=== PATIENT | female | born 1980 | race African-American/Black ===

== ENCOUNTER 2016-06-30 18:43 | Emergency (ER) | payer MEDICAID ==
[2015-08-03 13:13] VITALS: BMI 38.3
== END 2016-06-30 20:25 | disposition home or self-care (01) ==
LOC: D.ER 18:43
DX: M77.51 Other enthesopathy of right foot and ankle (principal)

== ENCOUNTER 2016-07-02 18:55 | Inpatient (IN) | payer MEDICAID ==
[~2016-07-02] VITALS: Ht 167.6 cm; Wt 111.9 kg
--- NOTE | ~2016-07-02 | HEMODYNAMI ---
PATIENT:SHRUTHI GALLEGOS MEDICAL RECORD: [id number] : 76 LOCATION:[facility] D.[address] [facility]# [id number] ADMISSION DATE: 07/02/16 Generatedon:07/03/201616:23 Patient name: SHRUTHI GALLEGOS Patient #: [id number] SSN: : 1980 Date of study: 07/03/2016 Page: Of Hemodynamic Procedure Report Patient Data Patient Demographics Procedure consent was obtained First Name: SHRUTHI Gender: Female Last Name: EL : 1980 [facility] Initial: N Age: 36 year(s) Patient #: [id number] Race: Black Additional ID: [id number] Contact details Address: [place] [address] State: [place] City: [place] Zip code: [address] Past Medical History Allergies: No known allergies Admission Admission Data Admission Date: 07/02/2016 Admission Time: 21:16 Admit Source: Other Insurance Payor: Private Room #: D.2125 health insurance Medications upon Admission Medications Dosage Times Administered Last Remarks per Delivery Day Date and Time Clopidogrel Yes 07/03/2016 0:00 Lab Results Lab Result Date: 07/03/2016 Lab Result Time: 0:00 Biochemistry Name Units Result Min Max Creatinine mg/dl 0.9 --(-*--)-- 0.6 1.3 CBC Name Units Result Min Max Hemoglobin g/dl 11.2 *-(----)-- 13.5 17.5 Procedure Procedure Types Cath Procedure Diagnostic Procedure LHC LHC w/Coronaries Miscellaneous Procedures Moderate Sedation up to 15 minutes Procedure Description Procedure Date Procedure Date: 07/03/2016 Procedure Start Time: 16:10 Procedure End Time: 16:21 Procedure Staff Name Function Hesham Ferguson MD Performing Physician Reji Spence RT Scrub Katy Kelley RN Nurse Jasson Simons RT Monitor Procedure Data Cath Procedure Fluoroscopy Diagnostic fluoroscopy Total fluoroscopy Time: 1.9 time: 1.9 min min Contrast Material Contrast Material Type Amount (ml) Isovue 300 59 Entry Location Entry Primary Successful Side Size Upsize Upsize Entry Closure Valderrama ccessful Closure Location (Fr) 1 (Fr) 2 (Fr) Remarks Device Remarks Radial Right 6 Fr Mechanical artery Short Compression Estimated blood loss: 5 ml Diagnostic catheters Device Type Used For End Catheter Placement Terumo 5Fr [place] 110cm Procedure catheter Cordis Infinity 5Fr Procedure Pigtail catheter Procedure Complications No complications Procedure Medications Medication Administration Route Dosage Oxygen NC 2 l/min Heparin Flush Bag added to field 2 bags (1000units/500ml NS) Lidocaine 2% added to field 20 Radial Cocktail added to field 1 syringe (Verapomil 2mg/Nitro 400mcg/Heparin 1500units) Radial Cocktail I.A. 1 syringe (Verapomil 2mg/Nitro 400mcg/Heparin 1500units) Versed I.V. 1 mg Fentanyl 50 mcg Versed I.V. 1 mg Fentanyl 50 mcg Hemodynamics Rest HGB: 11.2 (g/dl) Heart Rate: 72 (bpm) Snapshots Pre Cath Intra NCS Post Cath Vital Signs Time Heart Resp SPO2 NIBP (mmHg) Rhythm Pain Sedation Rate (ipm) (%) Status Level (bpm) 16:02:04 63 20 98 131/91(106) NSR 0 (11) 10(A) , No pain 16:06:16 68 22 100 135/89(109) NSR 0 (11) 10(A) , No pain 16:10:30 82 15 100 118/82(94) NSR 0 (11) 10(A) , No pain 16:15:15 75 15 100 111/72(90) NSR 0 (11) 9(A) , No pain 16:20:12 74 17 100 108/74(101) NSR 0 (11) 9(A) , No pain Medications Time Medication Route Dose Verified Delivered Reason Notes Effectiveness by by 15:58:09 Oxygen NC 2 l/min Hesham Burns Per Phyllis Kelley RN physician 15:58:16 Heparin Flush added 2 bags Hesham Dahl used for Bag to Phyllis Ferguson MD procedure (1000units/500ml field NS) 15:58:22 Lidocaine 2% added 20ml Hesham Dahl used for to vial Phyllis Ferguson MD procedure field 15:58:28 Radial Cocktail added 1 Hesham Dahl used for (Verapomil to syringe Phyllis Ferguson MD procedure 2mg/Nitro field 400mcg/Heparin 1500units) 16:10:28 Versed I.V. 1 mg Hesham Katy for sedation Phyllis Kelley RN 16:10:46 Fentanyl 50 mcg Hesham Katy for sedation Phyllis Kelley RN 16:10:55 Radial Cocktail I.A. 1 Hesham Dahl for (Verapomil syringe Phyllis Ferguson MD vasodilation 2mg/Nitro 400mcg/Heparin 1500units) 16:13:18 Versed I.V. 1 mg Hesham Katy for sedation Phyllis Kelley RN 16:13:28 Fentanyl 50 mcg Hesham Katy for sedation Phyllis Kelley RN Procedure Log Time Note 15:33:33 ACC Patient presents with Unstable Angina CCS Anginal Class 3--Marked limitation of physical activity, angina occurs with ordinary activity.. 15:33:35 Diagnostic Cath status Urgent 15:33:39 Reji Spence RT(R) sent for patient. Start room use. 15:33:40 Time tracking: Regular hours 15:33:45 Plan of Care:Hemodynamics will remain stable., Cardiac rhythm will remain stable., Comfort level will be maintained., Respiratory function will remain adequate., Patient/ family verbilizes understanding of procedure., Procedure tolerated without complication., Recovers from procedure without complications.. 15:58:09 Oxygen 2 l/min NC was given by Katy Kelley RN; Per physician; 15:58:16 Heparin Flush Bag (1000units/500ml NS) 2 bags added to field was given by Hesham Ferguson MD; used for procedure; 15:58:22 Lidocaine 2% 20ml vial added to field was given by Hesham Ferguson MD; used for procedure; 15:58:28 Radial Cocktail (Verapomil 2mg/Nitro 400mcg/Heparin 1500units) 1 syringe added to field was given by Hesham Ferguson MD; used for procedure; 16:00:55 Vital chart was started 16:07:37 Patient received from Med II to CCL 2 Alert and oriented. Tansferred to table in Supine position. 16:07:38 Warm blankets applied, and bulmaro hugger turned on for patient comfort. 16:07:38 Correct patient and procedure confirmed by team. 16:07:40 Signed procedure consent form obtained from patient. 16:07:41 ECG and BP/O2 sat monitors applied to patient. 16:08:01 Baseline sample Acquired. 16:08:06 Rhythm: sinus rhythm 16:08:46 H&P Date Dictated: 07/02/2016 Within 30 days and on chart.. 16:08:47 Pre-procedure instructions explained to patient. 16:08:47 Pre-op teaching completed and patient verbalized understanding. 16:08:55 Family unavailable. 16:08:56 Patient NPO since Midnight. 16:09:03 Patient allergic to No known allergies 16:09:08 Is the patient allergic to Iodine/contrast media? No. 16:09:10 Is patient on blood thinner?Yes 16:09:12 ACC The patient was administered the following blood thiners within the last 24 hours: ACCPlavix 16:09:16 Patient diabetic? No. 16:09:21 Patient not . Patient has had hysterectomy. 16:09:23 Previous problem with sedation/anesthesia? No ? 16:09:24 Snore? Yes 16:09:26 Sleep apnea? No 16:09:26 Deviated septum? No 16:09:27 Opens mouth fully? Yes 16:09:28 Sticks out tongue? Yes 16:09:30 Airway obstruction? No ? 16:09:31 Dentures? No ? 16:09:34 Modified Austin's test Ulnar < 7 seconds 16:09:37 Patient pain scale 0/10 ?. 16:09:45 IV patent on arrival in left antecubital with 0.9% NaCl at O. 16:10:07 Lab Result : Hemoglobin 11.2 g/dl 16:10:07 Lab Result : Creatinine 0.9 mg/dl 16:10:11 Lab results completed and on chart. 16:10:14 Right Radial & Right Groin area was prepped with chlora-prep and draped in sterile fashion 16:10:15 Alarms reviewed by R. N. 16:10:15 Sharps counted by scrub and verified by R.N. 16:10:17 --------ALL STOP TIME OUT------ 16:10:17 Final Timeout: patient, procedure, and site verified with staff and physician. All members of the team are in agreement. 16:10:19 Right Radial & Right Groin site verified by team. 16:10:22 Physical assessment completed. ASA score P 2 - A patient with mild systemic disease as per Hesham Ferguson MD. 16:10:25 Sedation plan: IV Moderate Sedation Versed, Fentanyl 16:10:28 Versed 1 mg I.V. was given by Katy Kelley RN; for sedation; 16:10:33 Use device set Radial Dx 16:10:34 Tegaderm 4 x 4 opened to sterile field. 16:10:35 Acist Manifold opened to sterile field. 16:10:35 Acist Hand Control opened to sterile field. 16:10:36 Acist Syringe opened to sterile field. 16:10:37 Cardinal Cath Pack opened to sterile field. 16:10:37 Bag Decanter opened to sterile field. 16:10:38 Terumo 6Fr Slender Glidesheath opened to sterile field. 16:10:38 St Pramod 260cm J .035 wire opened to sterile field. 16:10:42 Procedure started. 16:10:42 Full Disclosure recording started 16:10:46 Fentanyl 50 mcg was given by Katy Kelley RN; for sedation; 16:10:46 Local anesthetic to right radial artery with Lidocaine 2% by Hesham Ferguson MD.INITIAL ACCESS ONLY 16:10:53 A 6 Fr Short sheath was inserted into the Right Radial artery 16:10:55 Radial Cocktail (Verapomil 2mg/Nitro 400mcg/Heparin 1500units) 1 syringe I.A. was given by Hesham Ferguson MD; for vasodilation; 16:12:07 Zero performed for pressure channel P1 16:12:14 Zero performed for pressure channel P1 16:12:32 A Terumo 5Fr [place] 110cm catheter was advanced over the wire and used for Procedure. 16:13:18 Versed 1 mg I.V. was given by Katy Kelley RN; for sedation; 16:13:28 Fentanyl 50 mcg was given by Katy Kelley RN; for sedation; 16:13:34 LV gram done using VALLE 16:13:37 Injector settings: Ml/sec: 5, Volume: 15, 16:14:46 LCA angiography performed. 16:15:46 RCA angiography performed. 16:15:52 Catheter exchanged over wire. 16:17:20 A Cordis Infinity 5Fr Pigtail catheter was advanced over the wire and used for Procedure. 16:17:54 EF : 55 % 16:18:11 Catheter removed. 16:18:29 Terumo TR Band Standard opened to sterile field. 16:18:51 Sheath removed intact; hemostasis achieved with Mechanical Compression to the Right Radial artery. 16:18:53 Procedure ended.(Physican Out) 16:19:19 Fluoroscopy time 01.90 minutes. 16:19:35 Contrast amount:Isovue 300 59ml. 16:19:37 Sharps counted by scrub and verified by R.N. 16:19:55 TR band inflated with 10cc of air. 16:19:57 Insertion/operative site no bleeding no hematoma. 16:20:01 Post Procedure Pulses reassessed and unchanged 16:20:08 Post-procedure physical assessment completed. ASA score P 2 - A patient with mild systemic disease as per Hesham Ferguson MD. 16:20:11 Post procedure rhythm: unchanged. 16:20:13 Estimated blood loss: 5 ml 16:20:14 Post procedure instruction explained to patient.Patient verbalizes understanding. 16:20:15 Patient needs reinforcement of post procedure teaching. 16:20:32 Procedure type changed to Cath procedure, Diagnostic procedure, LHC, LHC w/Coronaries, Miscellaneous Procedures, Moderate Sedation up to 15 minutes 16:20:52 Procedure and supply charges have been captured, reviewed, submitted and are correct. 16:20:55 Procedure Complication : No complications 16:21:05 Vital chart was stopped 16:21:05 See physician's report for complete and final results. 16:21:14 Report given to PCU. 16:21:16 Patient transfered to PCU with Stretcher. 16:21:18 Procedure ended. 16:21:18 Full Disclosure recording stopped 16:21:22 End room use (Document Last) 16:22:10 Admit Source: Other 16:22:23 Insurance Payor : Private health insurance 16:23:30 LV Function : Normal 16:23:34 EF : 55 % Device Usage Item Name Manufacture Quantity Catalog Hospital Part Current Minimal Lot# / Number Charge Number Stock Stock Serial# Code Tegaderm 4 1 [id number] [id number] 014391 5 x 4 Acist Acist 1 58332 [id number] 439295 892759 5 Manifold [employer] Inc Acist Hand Acist 1 63136 139136 274276 882466 5 Control Medical Systems Inc Acist Acist 1 82653 971072 550902 619365 20 Syringe Medical Systems Inc Cardinal Cardinal 1 [id number] 42116 705158 5 Cath Pack Health Bag Microtek 1 2002S 651644 71495 860720 5 [email or web address] Terumo 6Fr Terumo 1 [id number] 399165 136608 041505 [address] Pramod 1 157839 532164 031623 810276 30 260cm J .035 wire Terumo 5Fr Terumo 1 40-3502 434732 191758 182878 5 [place] 110cm catheter Cordis Cardinal 1 [id number] 957357 626986 766340 5 [employer] 5Fr Pigtail catheter Terumo TR Terumo 1 [id number] 017556 292896 096537 40 Band Standard Signature Audit [place] Stage Time Signature Unsigned Intra-Procedure 07/03/2016 Jasson Simons 4:23:50 PM RT(R) Signatures Monitor : Jasson Simons RT Signature : Date : Time : [place] [id number]
[2016-07-02 19:52] LABS: ALBUMIN 3.3 g/dL (3.4-5.0); ALKALINE PHOSPHATASE 87 U/L (46-116); ALT (SGPT) 30 U/L (10-68); BASOPHILS 0.9 % (0.0-2.0); BILIRUBIN - TOTAL 0.51 mg/dL (0.2-1.3); CALC OSMOLALITY 280 mosm/kg (275-300); CALCIUM 8.4 mg/dL (8.5-10.1); CARBON DIOXIDE 27.1 mmol/L (21.0-32.0); CHLORIDE - SERUM 108 mmol/L (98-107); CREATININE - SERUM 0.9 mg/dL (0.6-1.3); EOSINOPHILS 2.7 % (0-7); GLUCOSE 85 mg/dL (74-106); HEMOGLOBIN 11.2 g/dL (12-16); IMMATURE GRANULOCYTES 0.3 % (0-5); LYMPHOCYTES 39.2 % (15-50); MCH 20.9 pg (26.0-34.0); MCV 65.2 fL (80.0-100.0); MEAN PLATELET VOLUME 10.1 fL (7.4-10.4); MONOCYTES 8.8 % (2-11); NEUTROPHILS 48.1 % (40-80); PLATELET COUNT 299 10x3/uL (130-400); POTASSIUM - SERUM 3.8 mmol/L (3.5-5.1); PROTEIN - SERUM 6.4 g/dL (6.4-8.2); RBC 5.37 10x6/uL (4.00-5.40); RDW 15.4 % (11.5-14.5); SODIUM 142 mmol/L (136-145); UREA NITROGEN 10 mg/dL (7-18); eGFR NON AFRICAN AMERICAN 74 mL/min (90-120)
[2016-07-02 20:11] LABS: CKMB 7.6 U/L (0.0-3.6); CREATINE KINASE 499 UL (21-215)
[2016-07-02 20:12] LABS: TROPONIN-I 0.531 ng/mL (0.000-0.060)
[2016-07-02 20:28] LABS: APPEARANCE CLEAR (CLEAR); BILIRUBIN NEGATIVE (NEGATIVE); COLOR YELLOW (YELLOW); GLUCOSE NEGATIVE (NEGATIVE); KETONE NEGATIVE (NEGATIVE); LEUKOCYTE ESTERASE NEGATIVE (NEGATIVE); NITRITE NEGATIVE (NEGATIVE); PROTEIN NEGATIVE (NEGATIVE); SPECIFIC GRAVITY 1.015 (1.005-1.020); UROBILINOGEN NORMAL (NORMAL)
[2016-07-02 20:29] LABS: UDS - AMPHET NEGATIVE QUAL (NEGATIVE); UDS - BARB NEGATIVE QUAL (NEGATIVE); UDS - BENZO NEGATIVE QUAL (NEGATIVE); UDS - COCAINE NEGATIVE QUAL (NEGATIVE); UDS - METH NEGATIVE QUAL (NEGATIVE); UDS - OPIATE NEGATIVE QUAL (NEGATIVE); UDS - PCP NEGATIVE QUAL (NEGATIVE); UDS - THC NEGATIVE QUAL (NEGATIVE)
--- NOTE | 2016-07-02 21:40 | NUR ---
RECIEVED TO ROOM 2124 FROM E.R. A&O, VITALS STABLE, PLACED ON TELEMETRY, 74 SR PER MT. IV TO LEFT AC SL, SITE CLEAN AND DRY. PT DENIES PAIN OR NEEDS. PTS DAD AT BED SIDE.
--- NOTE | 2016-07-02 22:46 | NUR ---
D5NS INFUSING TO LEFT AC PIV. PT DENIES NEEDS, REMINDED PT NOTHING TO EAT OR DRINK AFTER MN UNTIL SEEN BY CARIOLOGY. PT STATED UNDERSTANDING.
[2016-07-03 01:22] VITALS: BP 125/72
[2016-07-03 01:34] VITALS: BP 125/72; Ht 167.6 cm; Wt 111.9 kg
--- NOTE | 2016-07-03 03:01 | NUR ---
RESTING WITH EYES CLOSED, RESPERATIONS EVEN, NO S/S DISTRESS NOTED.
[2016-07-03 06:27] VITALS: BP 118/75
[2016-07-03 08:00] VITALS: BP 132/83
--- NOTE | 2016-07-03 08:20 | NUR ---
ASSESSMENT DONE. PT C/O SLIGHT CP. DENIES SOB. FAMILY AT BEDSIDE. WANTS TO BE TRANSFERED TO [facility]. DR. MORTON HERE AND NOTIFIED. HE IS GOING TO TALK TO PT AND FAMILY. CALL LIGHT WITH IN REACH. WILL CONT. TO MONITOR.
--- NOTE | 2016-07-03 08:20 | NUR ---
RESTS IN BED WITH CALL LIGHT IN REACH. RESP UL ON . IV PATENT. FAMILY AT BS. DR. MORTON DISCUSSING OPTIONS WITH FAMILY. WILL CONT. PLAN OF CARE.
--- NOTE | 2016-07-03 08:35 | NUR ---
THIS NURSE EXPLAINED TO PT THE RISKS OF PT WAITING FOR ANGIOGRAM D/T ELEVATED CE. NURSE EXPRESSED CONCERN TO PT THAT THIS NURSE DOES NOT FEEL LIKE SHE IS STABLE ENOUGH TO TRANSFUR TO [facility], AND WAIT FOR HEART CATH. PT VERBALIZED UNDERSTANDING AND STILL WISHES TO TRANSFER. SHE STATES HER DAD IS A PT THERE AND THAT IS WHERE SHE WISHES TO GO.
--- NOTE | 2016-07-03 11:36 | NUR ---
PT SLEEPING. RESP EVEN AND UNLABORED. APPEARS COMFORTABLE. CALL LIGHT WITH IN REACH. WILL CONT. TO MONITOR.
[2016-07-03 11:42] VITALS: BP 107/58; BP 123/79
--- NOTE | 2016-07-03 11:55 | NUR ---
DR MORTON INFORMED CM THAT THIS PATIENT WAS ADMITTED WITH ACS/NON Q WAVE PR AND IS REQUESTING TO TRANSFER TO [facility] IN [place] FOR CARDIOLOGY CARE. SHE STATED SHE DOES NOT HAVE A PRIMARY COMMUTATOR TESTER THAT FOLLOW HER AT [facility], NOR ANY REGULAR PHYSICIANS THAT SEE HER FROM [facility]. DR MORTON STATED THAT HE DISCUSSED NEED FOR HEART CATH AND THAT HEART CATH COULD BE DONE AT [facility] TODAY, BUT PT CONTINUED TO INSIST THAT SHE TRANSFER TO [facility] FOR CARDIOLOGY CARE. CM PLACED CALL TO TYLER Narvaez, EXPRESS CLERK, TO INFORM OF PT'S REQUEST FOR ACUTE TRANSFER TO [facility]. TYLER SPOKE WITH KRISTI GARCIA, DOOR FURRING INSTALLER IT BUSINESS ANALYST, TO OBTAIN ADMIN. APPROVAL FOR TRANSFER AND STATED THAT KRISTI GARCIA INFORMED THAT IF PATIENT REQUESTS TRANSFER WE WILL HONOR HER REQUEST AND ATTEMPT ACUTE TRANSFER TO [facility]. CM DAISHA COVARRUBIAS SPOKE WITH PATIENT WHO CONTINUES TO INSIST THAT SHE TRANSFER TO [facility]. Prashanth COVARRUBIAS EDUCATED PATIENT THAT A PHYSICIAN AT [facility] MUST ACCEPT HER FOR ADMISSION AND FACILITY MUST HAVE BED AVAILABLE TO TRANSFER TO. HE ALSO EDUCATED PATIENT THAT SHE COULD BE FINANCIALLY RESPONSIBLE FOR SERVICES/CARE THAT CAN BE PROVIDED AT CURRENT FACILITY ([facility]), AND TRANSPORTATION TO RECEIVING FACILITY. HE ENCOURAGED PATIENT TO CALL HER INSURANCE COMPANY TO DISCUSS ANY POTENTIAL FINACIAL RESPONSIBILITY INVOLVED IN LATERAL TRANSFER. ABBIE BRAGG RN, CM
--- NOTE | 2016-07-03 11:55 | NUR ---
Patient Name: SHRUTHI GALLEGOS Admission Status: ER Accout number: [id number] Admission Date: 07-02-2016 : 1980 Admission Diagnosis:NON-ST ELEVATION (NSTEMI) MYOCARDIAL INFARCTION Attending: DIANA Current LOS: 1 Anticipated DC Date: 07-03-2016 Planned Disposition: Other Type of Facility Primary Insurance: [employer] [facility] Discharge Planning Comments: * Is the patient Alert and Oriented? Yes 0 * How many steps to enter\exit or inside your home? 3 0 * PCP NONE 0 * Pharmacy NONE [facility] NEEDED 0 * Preadmission Environment Home with Family 0 * ADLs Independent 0 * Equipment None 0 * Other Equipment [facility] - MEDICAL EQUIPMENT PROVIDER 0 * List name and contact numbers for known caregivers / representatives who currently or will assist patient after discharge: EMMANUEL NOLEN, , 0 * Community resources currently utilized None 0 * Please name any agencies selected above. NONE 0 * Additional services required to return to the preadmission environment? No 0 * Can the patient safely return to the preadmission environment? Yes 0 * Has this patient been hospitalized within the prior 30 days at any hospital? No 0 CM MET WITH PT IN ROOM TO DISCUSS DISCHARGE PLANNING AND NEEDS. PT REPORTS LIVING AT HOME INDEPENDENTLY WITH MINOR CHILDREN AND HAS HER FATHER VISITING HER HOME AT THIS TIME. PT HAS NO MEDICAL EQUIPMENT AND WOULD PREFER [facility] A PROVIDER IF ANY IS NEEDED. PT HAS NO OUTSIDE SERVICES ASSISTING IN THE HOME. CM DISCUSSED PT'S REQUEST FOR TRANSFER TO [facility]. PT WOULD LIKE TRANSFER TO [facility] AND WOULD LIKE HER PROCEDURE DONE THERE. PT HAS NO DOCTOR OR ASPHALT RAKER AT [facility] AND HAS NOT RECEIVED CARE AT [facility] IN THE PAST. CM EXPLAINED THAT THERE HAS TO BE AN ACCEPTING PHYSICIAN THAT WILL AGREE TO THE LATERAL TRANSFER; A BED WOULD HAVE TO BE AVAILABLE AT THE FACILITY; INSURANCE MAY NOT PAY FOR AMBULANCE/CARE FOR LATERAL TRANSFER; CM EXPRESSED CONCERN REGARDING IS IT SAFE TO WAIT WHEN THE SERVICES NEEDED ARE AVAILABLE HERE. PT WOULD LIKE CM TO TRANSFER HER TO [facility] AND IF A DOCTOR WILL NOT ACCEPT HER, THEN SHE WILL DO THE PROCEDURE HERE. CM ADVISED PT TO CALL AND SPEAK TO HER INSURANCE COMPANY REGARDING WHAT THEY WILL COVER AND NOT COVER TO ENSURE PT IS NOT BURDENED FINANCIALLY AND MAKES AN INFORMED DECISION. CM PROVIDED AND DISCUSSED [facility] TO ASSIST PT WITH ESTABLISHING WITH PRIMARY CARE DOCTOR IF SHE CHOOSES TO DO SO. CM NOTIFIED RN JN PRASAD OF PT'S CONTINUED REQUEST TO TRANSFER TO [facility]. CM NOTIFIED OF ACCEPTING PHYSICIAN AND NO AVAILABLE BED AT [facility] FOR PT TRANSFER. CM NOTIFIED PT OF ABOVE; CM ADVISED PT THAT [facility] EMERGENCY ROOM PT'S TAKE PRIORITY OVER OUTSIDE HOSPITAL TRANSFERS AND CAUTIONED PT THAT THERE IS NO WAY TO KNOW WHEN A BED MAY BE AVAILABLE FOR TRANSFER AND THAT [facility] WOULD CALL CM WHEN BED IS AVAILABLE. PT THANKED JN. CM WAITING BED AVAILABILITY FOR PT'S REQUESTED TRANSFER TO [facility]. Supervisor Machining: [employer]
--- NOTE | 2016-07-03 12:02 | NUR ---
JN RECEIVED CALL FROM DR MORTON TO INFORM THAT HE HAD SPOKEN WITH DR. BARAJAS AT [facility] TO DISCUSS PATIENT'S REQUEST TO TRANSFER. HE INFORMED THAT DR. BARAJAS HAS AGREED TO ACCEPT PATIENT FOR TRANSFER, HOWEVER, HE ALSO STATED [facility] MD INFORMED HIM THAT THERE ARE CURRENTLY NO BEDS AVAILABLE AT THIS TIME. CM PLACED CALL TO [facility] TRANSFER LINE AND SPOKE TO HUNTER WHO CONCURRED THAT NO BEDS ARE CURRENTLY AVAILABLE AND THAT ANNE RN WITH [facility] TRANSFER TEAM WILL CALL MED 2 WHEN A BED BECOMES AVAILABLE. PT WAS INFORMED OF ABOVE. ABBIE BRAGG, RN, CM
--- NOTE | 2016-07-03 12:30 | NUR ---
PT ASKED FOR STATUS ON HER TRANSFER TO [facility]. NURSE EXPLAINED THAT THERE IS AN EXCEPTING PHYSICAN, BUT NOT AN AVAILABLE BED. NURSE EXPLAINED THERE IS NO WAY TO KNOW HOW LONG IT WILL TAKE BEFORE A BED IS OPEN FOR HER TO HAVE. NURSE EXPLAINED RISKS OF WAITING FOR HEART CATH. PT VERBALIZED UNDERSTANDING. STATES SHE WANTS TO TALK TO HER FAMILY BEFORE MAKING A CHOICE ON WEATHER TO DO HEART CATH HERE OR WAIT FOR TRANFER. WILL CONT. TO MONITOR.
--- NOTE | 2016-07-03 12:45 | NUR ---
PT HAS DECIDED TO STAY HERE AND ALLOW DR. MORTON TO DO HEART CATH. CASE MANAGEMENT AND DR. MORTON NOTIFIED. RECEIVED ORDER TO FEED PT LUNCH THEN KEEP NPO AFTER THAT. PT C/O CHEST PAIN AND PRESSURE. 1 NITRO TAB GIVEN. WILL MONITOR.
--- NOTE | 2016-07-03 13:02 | NUR ---
PT STATES NITRO HELPED CP, AND SOB. DENIES DIZZINESS. FAMILY AT BEDSIDE. CALL LIGHT WITH IN REACH. WILL CONT. TO MONITOR.
--- NOTE | 2016-07-03 13:56 | NUR ---
PT SITTING UP IN BED. A/O. DENIES CP OR SOB. STATES NITRO HAS RELEIVED SYMPTOMS. PT TO RESUME NPO STATUS PER DR. MORTON. PT VERBALIZED UNDERSTANDING.
[2016-07-03 15:46] LABS: CALC OSMOLALITY 278 mosm/kg (275-300); CALCIUM 7.8 mg/dL (8.5-10.1); CARBON DIOXIDE 25.8 mmol/L (21.0-32.0); CHLORIDE - SERUM 107 mmol/L (98-107); CREATININE - SERUM 0.8 mg/dL (0.6-1.3); GLUCOSE 127 mg/dL (74-106); POTASSIUM - SERUM 3.8 mmol/L (3.5-5.1); SODIUM 140 mmol/L (136-145); UREA NITROGEN 6 mg/dL (7-18); eGFR NON AFRICAN AMERICAN 85 mL/min (90-120)
[2016-07-03 15:46] LABS: BASOPHILS 0.7 % (0.0-2.0); EOSINOPHILS 2.5 % (0-7); HEMATOCRIT 34.1 % (36.0-48.0); HEMOGLOBIN 10.6 g/dL (12-16); LYMPHOCYTES 44.3 % (15-50); MCH 20.5 pg (26.0-34.0); MCHC 31.1 g/dL (31.0-37.0); MEAN PLATELET VOLUME 10.3 fL (7.4-10.4); MONOCYTES 12.8 % (2-11); NEUTROPHILS 39.7 % (40-80); PLATELET COUNT 253 10x3/uL (130-400); RBC 5.17 10x6/uL (4.00-5.40); RDW 15.4 % (11.5-14.5)
[2016-07-03 15:47] LABS: WBC 4.4 10x3/uL (4.8-10.8)
--- NOTE | 2016-07-03 15:50 | NUR ---
PT TO LINOTYPE MACHINIST APPRENTICE VIA BED
[2016-07-03 16:00] VITALS: BP 126/79
--- NOTE | 2016-07-03 16:38 | NUR ---
PT BACK FROM ACCESSIONER. TR BAND TO RIGHT WRIST. NO S/S OF BLEEDING OR HEMATOMA NOTED. PT SLEEPY BUT EASILY AROUSED. NO FAMILY IN ROOM AT THIS TIME. O2 A 2LITERS VIA NC. CALL LIGHT WITH IN REACH. INSTRUCTED PT TO REFRAIN FROM USING RIGHT HAND AND ARM. WILL CONT. TO MONITOR.
--- NOTE | 2016-07-03 17:33 | NUR ---
PT SLEEPING. APPEARS COMFORTABLE. RESP EVEN AND UNLABORED . FAMILY IN ROOM . TR BAND TO RIGHT WRIST. NO S/S OF BLEEDING OR HEMATOMA. WILL CONT. TO MONITOR.
--- NOTE | 2016-07-03 21:15 | NUR ---
TR BAND REMOVED FROM RIGHT WRIST, NO SWELLING OR BLEEDING NOTED, WILL CONT TO MONITOR.
--- NOTE | 2016-07-04 01:03 | NUR ---
RESTING WITH EYES CLOSED, RESPERATIONS EVEN, NO S/S DISTRESS NOTED.
[2016-07-04 01:11] VITALS: BP 152/80
[2016-07-04 04:36] VITALS: BP 103/57
--- NOTE | 2016-07-04 07:47 | NUR ---
ASSSESSMENT DONE. PT SITTING UP IN BED TALKING ON PHONE. A/O. STATES SHE IS FEELING BETTER. DENIES CHEST PAIN OR SOB. CATH SITE TO RIGHT WRIST WNL. DENIES NEEDS AT THIS TIME. CALL LIGHT WITH IN REACH. WILL CONT. TO MONITOR.
[2016-07-04 08:00] VITALS: BP 135/87
[2016-07-04 08:00] LABS: BASOPHILS 0.6 % (0.0-2.0); EOSINOPHILS 3.7 % (0-7); HEMATOCRIT 35.5 % (36.0-48.0); IMMATURE GRANULOCYTES 0.2 % (0-5); LYMPHOCYTES 38.1 % (15-50); MCH 20.7 pg (26.0-34.0); MCV 66.7 fL (80.0-100.0); MEAN PLATELET VOLUME 9.8 fL (7.4-10.4); MONOCYTES 8.8 % (2-11); NEUTROPHILS 48.6 % (40-80); PLATELET COUNT 264 10x3/uL (130-400); RBC 5.32 10x6/uL (4.00-5.40); RDW 15.4 % (11.5-14.5); WBC 4.6 10x3/uL (4.8-10.8)
[2016-07-04 08:30] LABS: ALBUMIN 3.1 g/dL (3.4-5.0); ALKALINE PHOSPHATASE 79 U/L (46-116); ALT (SGPT) 27 U/L (10-68); CALC OSMOLALITY 275 mosm/kg (275-300); CALCIUM 7.9 mg/dL (8.5-10.1); CARBON DIOXIDE 27.3 mmol/L (21.0-32.0); CHLORIDE - SERUM 106 mmol/L (98-107); CREATININE - SERUM 0.8 mg/dL (0.6-1.3); GLUCOSE 95 mg/dL (74-106); POTASSIUM - SERUM 4.2 mmol/L (3.5-5.1); PROTEIN - SERUM 5.9 g/dL (6.4-8.2); SODIUM 139 mmol/L (136-145); UREA NITROGEN 6 mg/dL (7-18); eGFR NON AFRICAN AMERICAN 85 mL/min (90-120)
[2016-07-04 08:36] LABS: TROPONIN-I 1.584 ng/mL (0.000-0.060)
--- NOTE | 2016-07-04 10:10 | NUR ---
PT AWAITING DISCHARGE PAPERWORK. NURSE REMOVED PT'S IV AND TELEMETRY. FAMILY IN ROOM. PT DENIES NEEDS OR DISCOMFORT AT THIS TIME.
--- NOTE | 2016-07-04 10:23 | NUR ---
RESTS IN BED WITHOUT NEEDS VOICED. FAMILY AT BS. CALL LIGHT IN REACH. WILL CONT. PLAN OF CARE.
--- NOTE | 2016-07-04 10:36 | NUR ---
D/C INSTRUCTIONS GIVEN TO PT. PT VERBALIZED UNDERSTANDING. PT D/C HOME VIA PRIVATE VEHICLE.
--- NOTE | 2016-07-04 13:59 | DS ---
PATIENT:SHRUTHI CORTÉS :[birth year] MEDICAL RECORD: [id number] DISCHARGE SUMMARY ADMISSION DATE: 07/02/16 DISCHARGE DATE: 07/04/16 DISCHARGE DIAGNOSES: 1. Chest pain. 2. Normal cardiac catheterization. 3. Normal chest CT. HOSPITAL COURSE: Mrs. Cortés presents with chest pain and a mildly elevated troponin; however, she underwent cardiac catheterization revealing no significant coronary artery disease. Normal ejection fraction. She underwent CT angio revealing no pulmonary embolus. She possibly has a mild viral pericarditis causing the chest pain. She was discharged home only with symptomatic relief with NSAIDs. We will follow up with [facility] in 1 month. TRANSINT:[id number] Voice Confirmation ID: [id number] DOCUMENT ID: [id number] ROSHNI MORTON MD at 1359 CC: [id number] DICTATION DATE: 07/04/16 0852 ACCOUNT ANALYST: 07/04/16 1114 DIS IN 07/04/16 [address] [place] [address]
--- NOTE | 2016-07-04 13:59 | OP ---
PATIENT NAME: SHRUTHI GALLEGOS MEDICAL RECORD: [id number] :[birth year] LOCATION:D.M2 D.2125 ADMISSION DATE:07/02/16 SURGEON: ROSHNI MORTON MD DATE OF OPERATION: 07/03/2016 PROCEDURES: 1. Left heart catheterization. 2. Selective coronary angiography. 3. Left ventriculogram. INDICATION: Chest pain, elevated troponin. PROCEDURE IN DETAIL: After informed consent was obtained and after detailed explanation of risks, benefits as well as alternative therapies, the patient elected to proceed with angiogram and heart catheterization. The right radial area was prepped and draped in normal sterile fashion. The right radial artery was cannulated via modified Seldinger technique with placement of 5-Polish sheath. All catheters exchanged through this sheath. FINDINGS: The left ventriculogram was performed in standard 30-degree VALLE view reveals good cardiac wall motion throughout all segments. Overall ejection fraction estimated at 60%. SELECTIVE CORONARY ANGIOGRAPHY: Left main, left anterior descending, left circumflex, right coronary are all smooth-walled vessels with no angiographic evidence of coronary artery disease. OVERALL IMPRESSION: 1. No angiographic evidence of coronary artery disease. 2. Normal left heart pressures. 3. Normal left ventricular systolic function. Chest pain is noncardiac in etiology. Evaluate noncardiac chest pain, evaluate for pulmonary embolus. TRANSINT:[id number] Voice Confirmation ID: [id number] DOCUMENT ID: [id number] ROSHNI MORTON MD at 1359 CC: [id number] DICTATION DATE: 07/03/16 1624 RESEARCH TECH: 07/03/16 1921 DIS IN 07/04/16 [facility] [address] [place] [address]
--- NOTE | 2016-07-04 13:59 | HP ---
PATIENT: SHRUTHI CORTÉS MEDICAL RECORD: [id number] ACCOUNT: [id number] LOCATION:[address] : [birth year] ADMISSION DATE: 07/02/16 HISTORY AND PHYSICAL EXAMINATION DIAGNOSES: 1. Non-Q-wave myocardial infarction. 2. Family history of coronary artery disease. 3. Hypertension. HISTORY OF PRESENT ILLNESS: Mrs. Cortés presents with chest pain since yesterday. Troponin is positive. Her EKG has T-wave inversions anteriorly. She has no previous cardiac history. She has a family history of coronary artery disease. Distant smoking history and hypertension. No other real risk factors. PHYSICAL EXAMINATION: GENERAL APPEARANCE: Well-nourished, well-developed, appears stated age. Level of distress, comfortable. PSYCHIATRIC: Mental status, alert, normal affect. Orientation, oriented to time, place and person. EYES: Lids and conjunctiva, noninjected. No discharge, no pallor. ENT: Lips, teeth, gums, normal dentition. Oropharynx, no cyanosis, no pallor. NECK: Carotid arteries, bilateral normal upstroke, no bruits, no thrills. JUGULAR VEINS: No jugular venous pressure or distention. CERVICAL LYMPH NODES: Nontender, nonenlarged. THYROID: Not enlarged. Nontender. No nodules. LUNGS: Respiratory effort, unlabored. CHEST: Normal curvature. No thoracic deformity. No chest wall tenderness. Percussion, resonant. Auscultation, clear. No wheezes, no rales, no rhonchi. CARDIOVASCULAR: Precordial exam, nondisplaced. No heaves or pericardial thrills. Rate and rhythm, regular. Heart sounds, normal S1, normal S2. No S3, no gallop, no rub. Systolic murmur, not heard. Diastolic murmur, not heard. EXTREMITIES: No cyanosis, no edema. Peripheral pulses, full and equal in all extremities, except as noted. No bruits appreciated. ABDOMEN: Soft, nondistended. Normal aorta. No bruit. Nontender. No masses. Liver, nontender, no hepatomegaly. Spleen, nontender, no splenomegaly. MUSCULOSKELETAL: No joint tenderness. No joint swelling. No erythema. NEUROLOGICAL: Normal gait, normal strength, normal tone. SKIN: Warm and dry. REVIEW OF SYSTEMS: The patient reports easy bruising but reports no swollen glands. The patient reports no fever, no night sweats, no significant weight gain, no significant weight loss. No significant exercise tolerance. The patient reports no dry eyes, no irritation, no vision change. Patient reports no difficulty hearing and no ear pain. Patient reports no frequent nose bleeds or nose and sinus problems. Patient reports on arm pain on exertion. No shortness of breath while lying down. No history of heart murmur. Patient reports no cough, no wheezing or coughing up blood. Patient reports no abdominal pain, no vomiting. Normal appetite. No diarrhea and not vomiting blood. No nausea and no constipation. Patient reports no incontinence. No difficulty urinating. No hematuria. No increased frequency. Patient reports no muscle aches. No weakness, no arthralgias, no back pain. No swelling of the extremities. Patient reports no abnormal mole, no jaundice, no rashes. Reports no loss of consciousness. No weakness and no numbness. No seizures, dizziness, HISTORY AND PHYSICAL [id number] EL,SHRUTHI N or headaches. The patient reports no depression, no sleep disturbance, feeling safe in a relationship and no alcohol abuse. Patient reports on fatigue. Reports no runny nose or sinus pressure. No itching, no hives, and no frequent sneezing. OVERALL IMPRESSION: Non-Q-wave myocardial infarction, most likely she has hemodynamically significant coronary artery disease. She needs coronary angiography; however, she be transferred to [facility] due to the fact that her father is a patient there. We will see if [facility] is willing to accept her in transfer. If not, we will try to discuss cardiac catheterization and intervention here. TRANSINT:[id number] Voice Confirmation ID: [id number] DOCUMENT ID: [id number] ROSHNI MORTON MD at 1359 CC: [id number] DICTATION DATE: 07/03/16826 CLIENT SERVICE EXECUTIVE: 07/03/16 0852 DIS IN 07/04/16 [facility] [address] [place] [address]
== END 2016-07-04 10:35 | disposition home or self-care (01) | DRG 287 ==
LOC: D.ER 18:55 → D.M2 21:16
PROVIDERS: Emergency Medicine; ADMIT Internal Medicine Interventional Cardiology
PROC: B2151ZZ Fluoroscopy of Left Heart using Low Osmolar Contrast (ICD-10-PCS; 2016-07-03)
PROC: 4A023N7 Measurement of Cardiac Sampling and Pressure, Left Heart, Percutaneous Approach (ICD-10-PCS; 2016-07-03)
PROC: B2111ZZ Fluoroscopy of Multiple Coronary Arteries using Low Osmolar Contrast (ICD-10-PCS; principal; 2016-07-03 15:30)
DX: R07.89 Other chest pain (principal); Z82.49 Family history of ischemic heart disease and other diseases of the circulatory system; I10 Essential (primary) hypertension; R79.89 Other specified abnormal findings of blood chemistry

== ENCOUNTER → 2016-09-23 16:49 | Outpatient (CLI) | payer MEDICAID ==
[2016-07-03 01:34] VITALS: BMI 29.9
[2016-09-23 19:13] LABS: CALC OSMOLALITY 281 mosm/kg (275-300); CALCIUM 8.4 mg/dL (8.5-10.1); CARBON DIOXIDE 27.3 mmol/L (21.0-32.0); CHLORIDE - SERUM 106 mmol/L (98-107); CREATININE - SERUM 0.8 mg/dL (0.6-1.3); GLUCOSE 79 mg/dL (74-106); POTASSIUM - SERUM 4.3 mmol/L (3.5-5.1); SODIUM 142 mmol/L (136-145); UREA NITROGEN 12 mg/dL (7-18); eGFR NON AFRICAN AMERICAN 85 mL/min (90-120)
== END | disposition home or self-care (01) ==
LOC: D.LABREF 16:49
PROVIDERS: Urology
DX: I10 Essential (primary) hypertension (principal)

== ENCOUNTER 2019-10-30 11:42 | Observation (INO) | payer MEDICAID ==
[~2019-10-30] VITALS: Ht 167.6 cm; Wt 118.2 kg
[2019-10-30] MEDS ORDERED: LISINOPRIL20 MG PO (11:46)
[2019-10-30 17:10] VITALS: Ht 167.6 cm; Wt 118.2 kg
[2019-10-31 15:24] VITALS: BP 126/68
== END 2019-10-31 17:27 | disposition home or self-care (01) ==
LOC: D.ER 11:42 → D.M2 12:51 → OBSVTIME 21:00 → D.M2 10-31 17:27
PROVIDERS: ADMIT Family Medicine; ATTEND Family Medicine
DX: I20.9 Angina pectoris, unspecified (principal); R07.9 Chest pain, unspecified; I10 Essential (primary) hypertension

== ENCOUNTER 2020-10-26 05:52 | Inpatient (IN) | payer OTHER ==
[~2020-10-26] VITALS: Ht 165.1 cm; Wt 118.2 kg
--- NOTE | ~2020-10-26 | HEMODYNAMI ---
PATIENT:SHRUTHI CORTÉS MEDICAL RECORD: [id number] : 76 LOCATION:[place] [address] ADMISSION DATE: 10/26/20 Generatedon:19:43 Patient name: SHRUTHI CORTÉS Patient #: [id number] SSN: : 1980 Date of study: 10/27/2020 Page: Of Hemodynamic Procedure Report Patient Data Patient Demographics Procedure consent was obtained First Name: SHRUTHI Gender: Female Last Name: EL : 1980 [facility] Initial: N Age: 40 year(s) Patient #: [id number] Race: Black Additional ID: [id number] Contact details Address: [place] [address] State: [place] City: [place] Zip code: [address] Past Medical History Allergies: No known allergies Admission Admission Data Admission Date: 10/26/2020 Admission Time: 8:03 Admit Source: Other Room #: D.2125 Height (in.): 64.96 BSA: 2.21 (m2) Height (cm.): 165 BMI: 43.34 (kg/m2) Weight (lbs.): 260.15 Weight (kg.): 118 Lab Results Lab Result Date: 10/27/2020 Lab Result Time: 0:00 Biochemistry Name Units Result Min Max BUN mg/dl 9 --(*---)-- 7 18 Creatinine mg/dl 0.9 --(-*--)-- 0.6 1.3 CBC Name Units Result Min Max Hemoglobin g/dl 11.9 *-(----)-- 13.5 17.5 Procedure Procedure Types Cath Procedure Diagnostic Procedure C [facility] w/Coronaries Sedation Charges Moderate Sedation 10-24 minutes Procedure Description Procedure Date Procedure Date: 10/27/2020 Procedure Start Time: 9:28 Procedure End Time: 9:41 Procedure Staff Name Function Jaiden Quintero MD Performing Physician Kina Jerome RT Monitor Floyd Cortés RN Nurse Bora Spence RT Scrub Procedure Data Cath Procedure Fluoroscopy Diagnostic fluoroscopy Total fluoroscopy Time: 1 time: 1 min min Diagnostic fluoroscopy Total fluoroscopy dose: 363 dose: 363 mGy mGy Contrast Material Contrast Material Type Amount (ml) Isovue 300 41 Entry Location Entry Primary Successful Side Size Upsize Upsize Entry Closure Succes sful Closure Location (Fr) 1 (Fr) 2 (Fr) Remarks Device Remarks Femoral Right 5 Fr Exoseal artery Estimated blood loss: 5 ml Diagnostic catheters Device Type Used For End Catheter Placement MULTIPACK JL 4.0 5Fr Procedure catheter MULTIPACK 3DRC 5Fr Procedure catheter MULTIPACK Pigtail 5 Fr Procedure catheter Procedure Complications No complications Procedure Medications Medication Administration Route Dosage 0.9% NaCl I.V. 100 ml/hr Oxygen etCO2 Nasal cannula 2 l/min Heparin Flush Bag added to field 2 bags (1000units/500ml NS) Lidocaine 2% added to field 20 Versed I.V. 1 mg Fentanyl I.V. 50 mcg Versed I.V. 1 mg Fentanyl I.V. 50 mcg Hemodynamics Rest BSA: 2.21 (m2) HGB: 11.9 (g/dl) O2 Consumption: Estimated: 230.77 (ml/min) O2 Co nsumption indexed: Estimated:104.42 (ml/min/m) Heart Rate: 79 (bpm) Pressure Samples Time Site Value (mmHg) Purpose Heart Use Rate(bpm) 9:34 LV 96/1,0 Snapshot 85 9:34 AO 82/62(67) Pullback 82 9:34 LV 78/16,20 Pullback 82 Gradients Valve Time Site 1 Site 2 Mean SEP/DFP Peak To Heart Use (mmHg) (sec/min) Peak Rate (mmHg) (bpm) Aortic 9:34 LV AO 0 82 78/16,20 82/62(67) Calculations Valve P-P Mean Valve Index Valve Source Name Gradient Area Flow (cm2) Aortic 0 0 Snapshots Pre Cath Intra NCS Post Cath Vital Signs Time Heart Resp SPO2 etCO2 NIBP (mmHg) Rhythm Pain Sedation Rate (ipm) (%) (mmHg) Status Level (bpm) 9:19:32 72 12 98 30 138/86(110) NSR 0 (11) 10(A) , No pain 9:23:44 79 15 96 33.8 126/83(97) NSR 0 (11) 10(A) , No pain 9:27:54 83 19 96 34.5 123/82(91) NSR 0 (11) 10(A) , No pain 9:32:06 83 14 96 36.8 132/76(98) NSR 0 (11) 9(A) , No pain 9:36:16 84 17 97 36 132/79(100) NSR 0 (11) 9(A) , No pain 9:40:28 77 16 95 36.8 136/80(99) NSR 0 (11) 9(A) , No pain Medications Time Medication Route Dose Verified Delivered Reason Notes Effe ctiveness by by 9:20:36 0.9% NaCl I.V. 100 Jaiden Floyd used for ml/hr St Zheng Cortés RN procedure 9:20:43 Oxygen etCO2 2 Jaiden Floyd used for Nasal l/min St Zheng Cortés RN procedure cannula 9:20:51 Heparin Flush added 2 Jaiden Jaiden used for Bag to bags [facility] procedure (1000units/500ml field MD LEIVA NS) 9:20:59 Lidocaine 2% added 20ml Jaiden Dohertyory for local to vial [facility] anesthetic field MD LEIVA 9:25:41 Versed I.V. 1 mg Jaiden Sanchezy for St Zheng Cortés RN sedation 9:25:48 Fentanyl I.V. 50 Jaiden Sanchezy for mcg St Zheng Cortés RN sedation 9:29:03 Versed I.V. 1 mg Jaiden Floyd for St Zheng Cortés RN sedation 9:29:06 Fentanyl I.V. 50 Jaiden Sanche[address] for mcg [facility] Zheng Cortés RN sedation Procedure Log Time Note 8:49:37 Admit Source: Other 8:50:05 ACC Patient presents with Stable Angina CCS Anginal Class 2--Slight limitation of ordinary activity. 8:50:13 Procedure Status Urgent Heart Cath (IP). 8:51:05 Lab Result : Creatinine 0.9 mg/dl 8:51:05 Lab Result : BUN 9 mg/dl 8:51:05 Lab Result : Hemoglobin 11.9 g/dl 8:51:14 Lab results completed and on chart. 8:58:15 Patient Height : 64.96 inches 8:58:21 Patient Weight : 260.15 lbs 9:00:06 Floyd Cortés RN sent for patient. Start room use. 9:07:58 Time tracking: Regular hours (M-F 7:00 - 5:00) 9:08:03 Plan of Care:Hemodynamics will remain stable., Cardiac rhythm will remain stable., Comfort level will be maintained., Respiratory function will remain adequate., Patient/ family verbilizes understanding of procedure., Procedure tolerated without complication., Recovers from procedure without complications.. 9:08:10 Patient received from PCU to CCL 1 Alert and oriented. Tansferred to table in Supine position. 9:08:13 Signed procedure consent form obtained from patient. 9:08:14 Warm blankets applied, and bulmaro hugger turned on for patient comfort. 9:08:14 Correct patient and procedure confirmed by team. 9:08:15 ECG and BP/O2 sat monitors applied to patient. 9:14:23 Vital chart was started 9:17:22 Baseline sample Acquired. 9:17:26 Rhythm: sinus rhythm 9:17:29 Full Disclosure recording started 9:17:29 Pre-procedure instructions explained to patient. 9:17:30 Pre-op teaching completed and patient verbalized understanding. 9:17:31 Family in patients room. 9:20:05 Patient NPO since Midnight. 9:20:11 Patient allergic to No known allergies 9:20:13 Is patient on blood thinner?Yes 9:20:18 ACC The patient was administered the following blood thiners within the last 24 hours: ACCLovenox 9:20:19 Patient diabetic? No. 9:20:21 Patient not . Patient has had hysterectomy. 9:20:23 Previous problem with sedation/anesthesia? No ? 9:20:24 Snore? Yes 9:20:25 Sleep apnea? No 9:20:26 Deviated septum? No 9:20:27 Opens mouth fully? Yes 9:20:28 Sticks out tongue? Yes 9:20:31 Airway obstruction? No ? 9:20:33 Dentures? No ? 9:20:36 0.9% NaCl 100 ml/hr I.V. was administered by Floyd Cortés RN; used for procedure; Verbal order read back and verified. 9:20:36 Pre procedure: right dorsailis pedis pulse 2+ Normal; easily identifiable; not easily obliterated 9:20:42 Patient pain scale 0/10 ?. 9:20:43 Oxygen 2 l/min etCO2 Nasal cannula was administered by Floyd Cortés RN; used for procedure; Verbal order read back and verified. 9:20:46 IV patent on arrival in left hand with 0.9% NaCl at KVO. 9:20:51 Heparin Flush Bag (1000units/500ml NS) 2 bags added to field was administered by Jaiden Quintero MD; used for procedure; Verbal order read back and verified. 9:20:51 Risk of Mortality: .1 9:20:54 Risk of blood transfusion: .5 9:20:56 Risk of RUBEN: 1.1 9:20:59 Lidocaine 2% 20ml vial added to field was administered by Jaiden Quintero MD; for local anesthetic; Verbal order read back and verified. 9:21:02 Right groin area was prepped with chlora-prep and draped in sterile fashion 9:21:03 Alarms reviewed by R. N. 9:21:03 Sharps counted by scrub and verified by R.N. 9:21:06 Use device set Femoral Dx 9:21:07 ACIST Syringe (64868) opened to sterile field. 9:21:07 Bag Decanter (2002S) opened to sterile field. 9:21:08 ACIST Hand Control (95534) opened to sterile field. 9:21:08 ACIST Manifold (90663) opened to sterile field. 9:21:10 Tegaderm 4 x 4 (1626W) opened to sterile field. 9:21:11 Medline Cath Pack ([id number]) opened to sterile field. 9:21:12 DIAGNOSTIC Multipack 5Fr catheter set ([id number]) opened to sterile field. 9:21:14 SHEATH 5FR [place] (DPX949) opened to sterile field. 9:21:14 EMERALD Guide Wire (919-488) opened to sterile field. 9:22:54 IV Extension Set opened to sterile field. 9:25:13 --------ALL STOP TIME OUT------ 9:25:13 Final Timeout: patient, procedure, and site verified with staff and physician. All members of the team are in agreement. 9:25:14 Right groin site verified by team. 9:25:18 Fire Safety Assessment: A--An alcohol-based skin anteseptic being used preoperatively., C--Open oxygen or nitrous oxide is being used., D--An ESU, laser, or fiber-optic light is being used. 9:25:20 Physical assessment completed. ASA score P 2 - A patient with mild systemic disease as per Jaiden Quintero MD. 9:25:23 2) 60-89 Mildly reduced kidney function, and other findings (as for stage 1) point to kidney disease. 9:25:26 Maximum allowable contrast dose (3.7 X eGFR X 0.75)244 ml. 9:25:28 Sedation plan: IV Moderate Sedation Medication:Versed, Fentanyl 9:25:41 Versed 1 mg I.V. was administered by Floyd Cortés RN; for sedation; Verbal order read back and verified. 9:25:48 Fentanyl 50 mcg I.V. was administered by Floyd Cortés RN; for sedation; Verbal order read back and verified. 9:27:50 Zero performed for pressure channel P1 9:27:55 Procedure started. 9:28:00 Local anesthetic to right femoral artery with Lidocaine 2% by Jaiden Quintero MD.INITIAL ACCESS ONLY 9:28:58 A 5 Fr sheath was inserted into the Right Femoral artery 9:29:03 Versed 1 mg I.V. was administered by Floyd Cortés RN; for sedation; Verbal order read back and verified. 9:29:06 Fentanyl 50 mcg I.V. was administered by Floyd Cortés RN; for sedation; Verbal order read back and verified. 9:29:38 A MULTIPACK JL 4.0 5Fr catheter was advanced over the wire and used for Procedure. 9:30:45 LCA angiography performed. 9:31:05 Catheter removed. 9:31:13 Zero performed for pressure channel P1 9:31:21 A MULTIPACK 3DRC 5Fr catheter was advanced over the wire and used for Procedure. 9:32:28 RCA angiography performed. 9:32:29 Catheter removed. 9:32:47 A MULTIPACK Pigtail 5 Fr catheter was advanced over the wire and used for Procedure. 9:34:08 LV gram done using VALLE 9:34:10 Injector settings: Ml/sec: 10, Volume: 20, 9:34:11 LV hemodynamics recorded. 9:34:17 EF : 50 % 9:34:19 Catheter removed. 9:34:20 EXOSEAL 5Fr (EX500) opened to sterile field. 9:34:56 Sheath removed intact; hemostasis achieved with Exoseal to the Right Femoral artery. 9:35:15 Procedure ended.(Physican Out) 9:36:14 Contrast amount:Isovue 300 41ml. 9:36:18 Fluoroscopy time 01.00 minutes. 9:36:23 Fluoroscopy dose: 363 mGy 9:36:23 Flurop Dose total: 363 9:36:30 Dose Area Product 29933 mGy/cm. 9:36:32 Maximum allowable dose exceeded? No. 9:36:33 Sharps counted by scrub and verified by R.N. 9:36:35 Post-op/insertion site Right Femoral artery dressed using a 4 x 4 and Tegaderm. 9:37:15 Post-procedure physical assessment completed. ASA score P 2 - A patient with mild systemic disease as per Jaiden Quintero MD. 9:37:19 Post procedure rhythm: sinus rhythm 9:37:21 Estimated blood loss: 5 ml 9:37:25 Post procedure instruction explained to patient.Patient verbalizes understanding. 9:37:26 Patient needs reinforcement of post procedure teaching. 9:37:35 Procedure type changed to Cath procedure, Diagnostic procedure, LHC, LHC w/Coronaries, Sedation Charges, Moderate Sedation 10-24 minutes 9:37:48 Procedure and supply charges have been captured, reviewed, submitted and are correct. 9:37:52 Procedure Complication : No complications 9:37:55 [facility] Findings: mild to moderate CAD (<70%) 9:37:58 Operative report dictated upon procedure completion. 9:37:58 See physician's report for complete and final results. 9:41:18 Vital chart was stopped 9:41:21 Report given to [facility]. 9:41:23 Patient transfered to [facility] with Bed. 9:41:25 Procedure ended. 9:41:25 Full Disclosure recording stopped 9:41:30 End room use (Document Last) 9:42:18 Procedure ended.(Physican Out) Device Usage Item Name Manufacture Quantity Catalog Hospital Part Current Minimal L ot# / Number Charge Number Stock Stock Serial# Code ACIST Acist 1 35584 [id number] [id number] [id number] 20 Syringe CookItFor.Us (46553) [employer] Bag Microtek 1 857605 27712 794119 5 Decanter [employer] Inc. (2002S) ACIST Hand Acist 1 40110 442507 275591 664808 5 Control Medical (12071) Systems Inc ACIST Acist 1 76052 281465 884251 191734 5 Manifold Medical (36722) Systems Inc Tegaderm 4 3M 1 1626W 689561 842292 263521 5 x 4 (1626W) Medline Medline 1 [id number] 421662 67962 983053 5 Cath Pack ([id number]) DIAGNOSTIC Cardinal 1 HL5512 726927 91374 132275 30 Multipack Health 5Fr catheter set (UZ5236) SHEATH 5FR Terumo 1 FWX601 696915 855119 074244 5 [place] (TYC925) EMERALD Cardinal 1 792-100 414215 380123 827786 5 Guide Wire Health (502-703) IV Hospira 1 85444-20 590309 72078 618198 5 Extension Set MULTIPACK Cardinal 1 256908 5 JL 4.0 5Fr Health catheter MULTIPACK Cardinal 1 550673 5 3DRC 5Fr Health catheter MULTIPACK Cardinal 1 160168 5 Pigtail 5 Health Fr catheter EXOSEAL 5Fr Cardinal 1 EX500 833930 324370 560247 10 (EX500) Health Signature Audit [place] Stage Time Signature Unsigned Intra-Procedure 10/27/2020 Kina Jerome 9:41:40 AM RT(R) Intra-Procedure 10/27/2020 Floyd Cortés RN 9:42:19 AM Intra-Procedure 10/27/2020 Jaiden Eugene 9:43:04 AM Zheng LEIVA [address] [place] [address]
[~2020-10-26 05:52] MED LIST: AUGMENTIN 875-11 TAB PO; LISINOPRIL20 MG PO; MUCINEX DM ER1 EAC1 PO; XOFLUZA40 MG PO
[2020-10-26 06:20] VITALS: BP 162/105
[2020-10-26 06:37] LABS: BASOPHILS 0.6 % (0-2); EOSINOPHILS 3.3 % (0-7); HEMATOCRIT 38.4 % (36.0-48.0); HEMOGLOBIN 11.9 g/dL (12-16); MCH 20.5 pg (26.0-34.0); MEAN PLATELET VOLUME 9.9 fL (7.4-10.4); MONOCYTES 13.9 % (2-11); NEUTROPHILS 39.2 % (40-80); PLATELET COUNT 324 10x3/uL (130-400); RBC 5.83 10x6/uL (4.00-5.40); WBC 7.8 10x3/uL (4.8-10.8)
--- NOTE | 2020-10-26 07:01 | NUR ---
URINE SENT TO LAB
[2020-10-26 07:30] LABS: CALC OSMOLALITY 280 mosm/kg (275-300); CALCIUM 8.1 mg/dL (8.5-10.1); CARBON DIOXIDE 24.7 mmol/L (21.0-32.0); CHLORIDE - SERUM 107 mmol/L (98-107); CREATININE - SERUM 0.9 mg/dL (0.6-1.3); GLUCOSE 146 mg/dL (74-106); POTASSIUM - SERUM 3.6 mmol/L (3.5-5.1); SODIUM 140 mmol/L (136-145); UREA NITROGEN 10 mg/dL (7-18); eGFR NON AFRICAN AMERICAN 73 mL/min (90-120)
[2020-10-26 07:50] LABS: ALBUMIN 3.6 g/dL (3.4-5.0); ALKALINE PHOSPHATASE 87 U/L (30-120); ALT (SGPT) 29 U/L (10-68); BILIRUBIN - TOTAL 0.95 mg/dL (0.2-1.3); CKMB 4.3 U/L (0.0-3.6); CREATINE KINASE 543 UL (21-215); MAGNESIUM - SERUM 1.8 mg/dL (1.8-2.4)
[2020-10-26 07:52] LABS: TROPONIN-I 0.119 ng/mL (0.000-0.060)
[2020-10-26 11:46] LABS: CKMB 20.2 U/L (0.0-3.6); CREATINE KINASE 643 UL (21-215)
[2020-10-26 11:47] LABS: TROPONIN-I 1.385 ng/mL (0.000-0.060)
--- NOTE | 2020-10-26 16:07 | NUR ---
ARRIVED TO FLOOR.
[2020-10-26 16:10] LABS: CKMB 85.1 U/L (0.0-3.6); CREATINE KINASE 998 UL (21-215)
[2020-10-26 16:37] VITALS: BP 169/90
[2020-10-26 17:39] LABS: CHOL - HDL RATIO 2.5 ratio (2.3-4.1); LDL-HDL RATIO 1.3 ratio (1.5-3.5)
[2020-10-26 20:21] VITALS: BP 179/108
--- NOTE | 2020-10-26 21:00 | NUR ---
REPORT RECEIVED. PT A&O, UP IN BED WITH DAUGHTER AT BEDSIDE. PT REPORTING NAUSEA AND VOMITING. C/O STOMACH CRAMPS/PAIN. NO OTHER S/S OF DISTRESS OBSERVED. RR EVEN & UNLABORED, O2 SAT 98% ON RA. IV TO L WRIST SL, PATENT, SWAB CAPS IN USE. BED LOCKED AND LOWERED, CL IN REACH. ASSESSMENT COMPLETE. WILL CONT POC.
[2020-10-26 21:30] LABS: CKMB 101.2 U/L (0.0-3.6)
[2020-10-26 21:36] LABS: CREATINE KINASE 1290 UL (21-215); TROPONIN-I 23.629 ng/mL (0.000-0.060)
[2020-10-26 23:51] VITALS: BP 146/98
[2020-10-27 03:57] VITALS: BP 179/108; Ht 165.1 cm; Wt 118.2 kg
[2020-10-27 04:02] LABS: BASOPHILS 0.8 % (0-2); EOSINOPHILS 0.5 % (0-7); HEMATOCRIT 38.1 % (36.0-48.0); HEMOGLOBIN 11.9 g/dL (12-16); LYMPHOCYTES 23.9 % (15-50); MCH 20.3 pg (26.0-34.0); MCHC 31.1 g/dL (31.0-37.0); MCV 65.2 fL (80.0-100.0); MEAN PLATELET VOLUME 9.1 fL (7.4-10.4); MONOCYTES 10.7 % (2-11); NEUTROPHILS 64.1 % (40-80); PLATELET COUNT 282 10x3/uL (130-400); RBC 5.85 10x6/uL (4.00-5.40); RDW 15.6 % (11.5-14.5); WBC 8.4 10x3/uL (4.8-10.8)
[2020-10-27 04:40] LABS: ALBUMIN 3.6 g/dL (3.4-5.0); ALKALINE PHOSPHATASE 87 U/L (30-120); BILIRUBIN - TOTAL 1.33 mg/dL (0.2-1.3); CALC OSMOLALITY 278 mosm/kg (275-300); CALCIUM 8.1 mg/dL (8.5-10.1); CARBON DIOXIDE 25.3 mmol/L (21.0-32.0); CHLORIDE - SERUM 105 mmol/L (98-107); CKMB 56.7 U/L (0.0-3.6); CREATININE - SERUM 0.9 mg/dL (0.6-1.3); GLUCOSE 109 mg/dL (74-106); POTASSIUM - SERUM 3.6 mmol/L (3.5-5.1); SODIUM 140 mmol/L (136-145); UREA NITROGEN 9 mg/dL (7-18); eGFR NON AFRICAN AMERICAN 73 mL/min (90-120)
[2020-10-27 05:06] LABS: ALT (SGPT) 41 U/L (10-68); CREATINE KINASE 1156 UL (21-215); TROPONIN-I 13.299 ng/mL (0.000-0.060)
[2020-10-27 05:28] VITALS: BP 134/66
--- NOTE | 2020-10-27 07:15 | NUR ---
RECEIVE SHIFT REPORT. RESTING IN BED. DAUGHTER AT BEDSIDE. PATIENT STATES SHE HAD A REALLY ROUGH NIGHT BUT IS FEELING BETTER AT THIS TIME. DENIES ANY NEEDS. NPO SINCE MIDNIGHT. WILL CONTINUE POC AND SAFETY PRECAUTIONS.
[2020-10-27 08:38] LABS: CHOL - HDL RATIO 2.6 ratio (2.3-4.1); CHOLESTEROL, TOTAL 152 mg/dL (0-200); HDL CHOLESTEROL 59 mg/dL (32-96); LDL CHOLESTEROL 81 mg/dL (0-100); LDL-HDL RATIO 1.4 ratio (1.5-3.5); TRIGLYCERIDE 64 mg/dL (30-200)
[2020-10-27 09:00] VITALS: BP 138/66
[2020-10-27 16:00] VITALS: BP 155/53
--- NOTE | 2020-10-27 19:15 | NUR ---
RECEIVED REPORT, WILL ASSUME CARE OF PT, DENIES ANY NEEDS AT THIS TIME, BED IS LOW, SRX2, CALL LIGHT IN REACH, WILL CONTINUE PLAN OF CARE
[2020-10-27 19:36] VITALS: BP 132/62
--- NOTE | 2020-10-28 01:00 | NUR ---
I have reviewed this patient and I concur with the Shift Assessment completed by the Licensed Practical Nurse today this shift.
[2020-10-28 05:21] VITALS: BP 145/87
[2020-10-28 06:18] LABS: BASOPHILS 0.8 % (0-2); EOSINOPHILS 1.8 % (0-7); HEMATOCRIT 37.7 % (36.0-48.0); HEMOGLOBIN 11.6 g/dL (12-16); LYMPHOCYTES 34.3 % (15-50); MCH 20.4 pg (26.0-34.0); MCHC 30.7 g/dL (31.0-37.0); MCV 66.5 fL (80.0-100.0); MEAN PLATELET VOLUME 9.6 fL (7.4-10.4); MONOCYTES 11.2 % (2-11); NEUTROPHILS 51.9 % (40-80); PLATELET COUNT 261 10x3/uL (130-400); RBC 5.66 10x6/uL (4.00-5.40); RDW 15.5 % (11.5-14.5)
[2020-10-28 06:33] LABS: ALBUMIN 3.4 g/dL (3.4-5.0); ANION GAP 9.2 mmol/L (8-16); BILIRUBIN - TOTAL 1.72 mg/dL (0.2-1.3); CALCIUM 8.1 mg/dL (8.5-10.1); CARBON DIOXIDE 27.3 mmol/L (21.0-32.0); MAGNESIUM - SERUM 2.1 mg/dL (1.8-2.4); POTASSIUM - SERUM 3.5 mmol/L (3.5-5.1)
[2020-10-28 06:55] LABS: WBC 5.5 10x3/uL (4.8-10.8)
[2020-10-28 08:38] VITALS: BP 112/58
[2020-10-28] MEDS ORDERED: CHLORTHALIDONE25 MG PO (08:45)
[2020-10-28] MEDS ORDERED: COREG 3.1253.125 MG PO (08:45)
[2020-10-28] MEDS ORDERED: LISINOPRIL10 MG PO (08:45)
[2020-10-28] MEDS ORDERED: LIPITOR20 MG PO (08:46)
--- NOTE | 2020-10-28 10:06 | NUR ---
PROVIDED VERBAL AND WRITTEN DISCHARGE TEACHING TO PT, WHO VERBALIZED UNDERSTANDING REGARDING TEACHING. ALSO PROVIDED PT WITH A WORK EXCUSE THAT SHE CAN GO BACK TO WORK ON FRIDAY. PT LEFT UNIT VIA WHEELCHAIR, WITH ALL BELONGINGS, ACCOMPANIED BY DAUGHTER, TOMMY NOTED.
--- NOTE | 2020-10-28 20:19 | MORECARE ---
CASE MANAGEMENT DISCHARGE SUMMARY PATIENT: SHRUTHI GALLEGOS UNIT: [id number] ADM DATE: 10/27/20 AGE: 40 : 76 SEX: F ROOM/BED: D.8557 AUTHOR: ADDOC PHYSICIAN: REFERRING PHYSICIAN: LATOSHA HUERTA MD DATE OF SERVICE: 10/28/20 Case Management Discharge Planning Summary COMMENTS ENTERED DATE: 10/28/20 20:14 CT COMMENT TYPE: Discharge Planning REVIEWER: Matheus Jain CM met with patient to complete DC plan and to evaluate needs. Patient lives independently with family. Patient stated that her person to notify is her sisterDenisse, . Patient stated that her home is safe and has electricity and running water. Patient stated that the home has 3 steps to enter and she is able to manage the steps without difficulty. Patient stated that she has no problems paying for medications and she fills her medications at [facility]. Patient stated that her primary care physician is Dr. Mahoney. At discharge, the patient plans to return home and feels this is a safe discharge. CM discussed availability of home health, rehab services, and medical equipment. Patient declined HHS, SNF, IPR, and DME. Patient voiced no other needs at this time and is satisfied with DC plan. CM will continue to follow and will assist as needed with dc plans/needs DCP REVIEW SUMMARY ANTICIPATED D/C DATE: 10/28/2020 EXPECTED LOS : 1 CASE STATUS: DCP Initiated INITIAL REVIEW: 10/26/2020 INITIAL REVIEWER: Matheus Jain FINAL DISCHARGE DISPOSITION: : FINAL REVIEWER: FINAL REVIEW DATE: DCP Focus Questions & Answers DCP Evaluation QUESTION: ANSWER Patient gives permission to discuss discharge plans with: (name, relationship and number) : sisterDenisse, Patient's ability to cope with chronic illness : d. No chronic illness Patient's current cognitive status: : *Oriented to person, place, situation, time and present Family / Caregiver's ability to cope with chronic illness: : a. Adequate (ability to meet patient's medical needs, ensures patient attends medical appts.) Patient and/or caregiver agree upon recommended discharge plan? : Yes Physical Status: : Independent with ADL's Family / Caregiver's ability to cope with chronic illness: : a. Adequate (ability to meet patient's medical needs, ensures patient attends medical appts.) Functional screen assessment: : Basic needs can adequately be met by self Does the patient have the ability to pay for or attain post discharge needs / services? : Yes Living Arrangements: : Home with Extended Family Is there a likelihood that the patient will require additional services to return to the preadmission environment? : No Equipment needed for post hospitalization: : None Baseline cognitive status: : *Oriented to person, place, situation, time and present Patient with capacity for self-care or can be cared for in same environment as prior to hospitalization? : Yes Physical environment modification needed / anticipated for discharge: : No Medication Management: : Patient states can afford medications Medication Management: : Patient states can read and understand medication labels Pharmacy name(s): : [facility] Does Patient have transportation to get home and to follow-up medical appointments when discharged from the hospital? : Yes Would patient like to participate in any Care Coordination programs (if applicable): : Not applicable Does the patient have electricity at home? : Yes Does the patient have running water in their house? : Yes Equipment in use: : None Mental health screen: : No mental health history DCP Re-evaluation QUESTION: ANSWER Would patient like to participate in any Care Coordination programs (if applicable): : Not applicable PATIENT: SHRUTHI GALLEGOS ENCOUNTER: [id number] MEDICAL RECORD#: [id number] ADMISSION DATE: 10/27/2020 DISCHARGE DATE: 10/28/2020 ATTENDING MD: BRITTANI MENDEZ : AGE: 40 MARITAL STATUS: S DC PLAN ID: [id number] FACILITY: [facility] PRINTED ON: 10/28/20 20:18 CT All edits/amendments must be made on the electronic document DICTATION DATE: 10/28/202017 DONOR SERVICES SPECIALIST: DM 10/28/20 2018 RPT#: [id number] DC DATE:10/28/20 STATUS: DIS IN [id number] [place] [address] END OF REPORT
--- NOTE | 2020-10-30 16:28 | MORECARE ---
CASE MANAGEMENT DISCHARGE SUMMARY PATIENT: SHRUTHI GALLEGOS UNIT: [id number] ADM DATE: 10/27/20 AGE: 40 : 76 SEX: F ROOM/BED: D.3770 AUTHOR: BENNY DUONG PHYSICIAN: REFERRING PHYSICIAN: LATOSHA HUERTA MD DATE OF SERVICE: 10/30/20 Case Management Discharge Planning Summary COMMENTS ENTERED DATE: 10/28/20 20:14 CT COMMENT TYPE: Discharge Planning REVIEWER: Matheus Jain CM met with patient to complete DC plan and to evaluate needs. Patient lives independently with family. Patient stated that her person to notify is her sister, Denisse Grubbs, . Patient stated that her home is safe and has electricity and running water. Patient stated that the home has 3 steps to enter and she is able to manage the steps without difficulty. Patient stated that she has no problems paying for medications and she fills her medications at [facility]. Patient stated that her primary care physician is Dr. Mahoney. At discharge, the patient plans to return home and feels this is a safe discharge. CM discussed availability of home health, rehab services, and medical equipment. Patient declined HHS, SNF, IPR, and DME. Patient voiced no other needs at this time and is satisfied with DC plan. CM will continue to follow and will assist as needed with dc plans/needs DCP REVIEW SUMMARY ANTICIPATED D/C DATE: 10/28/2020 EXPECTED LOS : 1 CASE STATUS: DCP Initiated INITIAL REVIEW: 10/26/2020 INITIAL REVIEWER: Matheus Jain FINAL DISCHARGE DISPOSITION: : FINAL REVIEWER: FINAL REVIEW DATE: DCP Focus Questions & Answers DCP Evaluation QUESTION: ANSWER Patient and/or caregiver agree upon recommended discharge plan? : Yes Family / Caregiver's ability to cope with chronic illness: : a. Adequate (ability to meet patient's medical needs, ensures patient attends medical appts.) Patient's current cognitive status: : *Oriented to person, place, situation, time and present Patient's ability to cope with chronic illness : d. No chronic illness Patient gives permission to discuss discharge plans with: (name, relationship and number) : sister, Denisse Grubbs, Does the patient have the ability to pay for or attain post discharge needs / services? : Yes Functional screen assessment: : Basic needs can adequately be met by self Family / Caregiver's ability to cope with chronic illness: : a. Adequate (ability to meet patient's medical needs, ensures patient attends medical appts.) Physical Status: : Independent with ADL's Equipment needed for post hospitalization: : None Is there a likelihood that the patient will require additional services to return to the preadmission environment? : No Living Arrangements: : Home with Extended Family Patient with capacity for self-care or can be cared for in same environment as prior to hospitalization? : Yes Baseline cognitive status: : *Oriented to person, place, situation, time and present Physical environment modification needed / anticipated for discharge: : No Medication Management: : Patient states can read and understand medication labels Medication Management: : Patient states can afford medications Pharmacy name(s): : [facility] Does Patient have transportation to get home and to follow-up medical appointments when discharged from the hospital? : Yes Would patient like to participate in any Care Coordination programs (if applicable): : Not applicable Does the patient have electricity at home? : Yes Does the patient have running water in their house? : Yes Equipment in use: : None Mental health screen: : No mental health history DCP Re-evaluation QUESTION: ANSWER Would patient like to participate in any Care Coordination programs (if applicable): : Not applicable PATIENT: SHRUTHI GALLEGOS ENCOUNTER: [id number] MEDICAL RECORD#: [id number] ADMISSION DATE: 10/27/2020 DISCHARGE DATE: 10/28/2020 ATTENDING MD: BRITTANI MENDEZ : AGE: 40 MARITAL STATUS: S DC PLAN ID: [id number] FACILITY: [facility] PRINTED ON: 10/30/20 16:27 CT All edits/amendments must be made on the electronic document DICTATION DATE: 10/30/201626 MACHINE REBUILDER: DM 10/30/20 162 RPT#: [id number] DC DATE:10/28/20 STATUS: DIS IN [facility] [address] [place] [address] END OF REPORT
--- NOTE | 2020-10-31 08:13 | EC ---
PATIENT:SHRUTHI GALLEGOS DATE OF SERVICE: 10/27/20 SEX: F MEDICAL RECORD: [id number] DATE OF : 76 LOCATION:D. D.212 AGE OF PATIENT: 40 ADMISSION DATE: 10/27/20 REFERRING PHYSICIAN: INTERPRETING PHYSICIAN: OLGA MURRY MD ECHOCARDIOGRAM REPORT ECHO CHARGES 4 ECHO COMPLETE Date: 10/26/20 CLINICAL DIAGNOSIS: CP ECHOCARDIOGRAPHIC MEASUREMENTS (adult normal given) AC root (d.<3.7cm) 3.5 cm LV Septum d (<1.2 cm> 1.1 cm Valve Excursion 2.1 cm LV Septum (systole) 1.3 cm Left Atria (s.<4.0cm> 4.0 cm LVPW d(<1.2cm) 1.2 cm RV (d.<2.3cm) 4.0 cm LVPW (sytole) 1.5 cm LV diastole(<5.6CM) 6.3 cm MV E-F(>70mm/sec) cm LV systole 5.1 cm LVOT Diameter 2.3 cm MV exc.(>10mm) cm Est.ejection fraction (50-75%) 45 % DOPPLER: LVIT cm/sec A 66 cm/sec E 68 cm/sec LA cm/sec RVSP 31 mmHg LVOT 82 cm/sec AOP1/2T m/s Asc. Ao 135 cm/sec RVOT 48 cm/sec RA 5.7 cm/sec PA 67 cm/sec AV Gradient Peak 7 mmHg AV Mean 3 mmHg AV Area 2.4 cm MV Gradient Peak 3 mmHg MV Mean 1 mmHg MV Area cm COMMENTS: District Sales Coordinator: Geoffrey MEDRANO Computer Console Operator: 3 Dr. Vazquez TAPE# Pericardial Effusion N DATE OF SERVICE: Adequate 2D, color flow imaging, spectral Doppler, and M-Mode. No LVH. LV internal dimensions are normal. Wall motion normal. EF greater than or equal to 55%. Aortic valve is tricuspid. No evidence of stenosis by Doppler interrogation. Left atrium is normal at 4.0 cm. Mitral valve shows no prolapse. Mild MR. Right-sided chambers are grossly normal. Trace TR. TRANSINT:[id number] Voice Confirmation ID: [id number] DOCUMENT ID: [id number] ECHOCARDIOGRAM REPORT [id number] SHRUTHI GALLEGOS OLGA MURRY MD at 0813 CC: [id number] DICTATION DATE: 10/27/20 0915 CHIEF OPERATOR HYDROFORMER: 10/27/20 1128 DIS IN 10/28/20 [id number] [facility] [place] [address]
--- NOTE | 2020-10-31 08:13 | OP ---
PATIENT NAME: SHRUTHI GALLEGOS MEDICAL RECORD: [id number] :76 LOCATION:D.M2 D.5 ADMISSION DATE:10/27/20 SURGEON: OLGA MURRY MD DATE OF OPERATION: 10/27/2020 PROCEDURES: Left heart catheterization, selective coronary angiography, right femoral artery approach. CATHETERS: 1. A 5-Upper Sorbian sheath. 2. 5/4 left and right Hafsa. 3. 5/4 pig. The procedure was well tolerated. The patient was returned to the avalos. Sheath removed. ExoSeal device and manual pressure were held. FINDINGS: Left ventriculography in 30-degree VALLE view: Normal wall motion and normal systolic function. CORONARY ANATOMY: 1. Left main. The left main is free of disease. 2. LAD: Free of disease in diagonal system. 3. Circumflex: Free of disease in marginal system. 4. Right coronary artery: Dominant, rise to PDA, free of disease. IMPRESSION: Normal LV systolic function, normal coronary anatomy. There really is no focal wall motion abnormality on the LV despite elevated troponins. Certainly, no focal wall motion to think spontaneous thrombosis even or Prinzmetal type angina. We could see an WERNER inhibitor as it may be an early myopathic process. Otherwise, medical management. TRANSINT:[id number] Voice Confirmation ID: [id number] DOCUMENT ID: [id number] OLGA MURRY MD at 0813 CC: [id number] DICTATION DATE: 10/27/20 0941 HANDKERCHIEF CUTTER: 10/27/20 1139 DIS IN 10/28/20 [facility] [address] [id number]
== END 2020-10-28 10:07 | disposition home or self-care (01) | DRG 281 ==
LOC: D.ER 05:52 → OBSVTIME 08:03 → D.M2 08:03 → D.EDHOLD 08:03 → D.M2 14:25
PROVIDERS: Emergency Medicine; Internal Medicine Interventional Cardiology; ADMIT Emergency Medicine; ATTEND Emergency Medicine
PROC: B2151ZZ Fluoroscopy of Left Heart using Low Osmolar Contrast (ICD-10-PCS; 2020-10-27)
PROC: 4A023N7 Measurement of Cardiac Sampling and Pressure, Left Heart, Percutaneous Approach (ICD-10-PCS; 2020-10-27)
PROC: B2111ZZ Fluoroscopy of Multiple Coronary Arteries using Low Osmolar Contrast (ICD-10-PCS; principal; 2020-10-27 09:00)
DX: I11.9 Hypertensive heart disease without heart failure (principal); I21.4 Non-ST elevation (NSTEMI) myocardial infarction; I43 Cardiomyopathy in diseases classified elsewhere; I25.10 Atherosclerotic heart disease of native coronary artery without angina pectoris